=== PATIENT | male | born 1940 | race Caucasian/White ===

== ENCOUNTER → 2016-09-28 | Outpatient (CLI) | payer OTHER, BC ==
[~2016-09-28] VITALS: Ht 177.8 cm; Wt 95.8 kg
[~2016-09-28] MED LIST: ALEVE220 MG PO; ASPIR 8181 MG PO; FLEXERIL PO; IBUPROFEN 800800 M1 PO; IMDUR 60 MG TAB60 M1 PO; MOBIC15 MG PO; NABUMETONE 750750 M1 PO; NEXIUM40 MG PO; SIMVASTATIN40 MG PO; TOPROL XL50 MG PO; XANAX 0.5 MG0.5 MG PO; ZOLOFT50 MG PO
--- NOTE | ~2016-09-28 | HPC ---
[facility] [place] [address] PAIN MANAGEMENT CONSULTATION Name: ISAAC LOPEZ Room #: REG [facility] Johana#: [id number] Admission: 09/28/16 Attend Phys: Thomas Aragon DO Discharge: Date of : 41 Report #: [id number] THIS REPORT FOR: //name// CC: Anibal Aragon The patient is a very pleasant 76-year-old gentleman, I saw back in May, was given a single lumbar epidural injection on his followup appointment on 06/29/2016. He had near "100%" relief of his back pain, and we opted to defer interventional therapy at that time. He returns to the pain clinic today, noting pain has begun to recur in low back, buttocks, and thighs. Rates his pain as 3-4 on a 0-10 visual analog scale, though notes that it is sharp and burning, and it is exacerbated with standing and walking. He has been taking nabumetone 750 mg b.i.d. I am concerned that he does have history of some coronary artery disease. He has dyslipidemia, on Zocor. Hypertension treated with metoprolol and does have endovascular stents in place (he is on no blood thinning agents). PHYSICAL EXAMINATION: Shows a 76-year-old gentleman, BMI is 30.3 kilograms per meter squared. Blood pressure is 97/54, pulse 68, respirations 14. Rises from the chair using armrest. He has a markedly antalgic gait, positive straight leg raise on the right. Right lower extremity flexion and dorsiflexion was 3-4/5. All other muscle groups were 4-5/5. Patellar reflexes absent on the right, 1/4 on the left. DIAGNOSTIC STUDIES: Include MRI of the lumbar spine from 06/04/2016 noting focal right lateral recess stenosis at L2-L3 with the complex synovial cyst at this level, canal narrowed to 8 mm, L3-L4 notes a significant stenosis down to 0.5 cm. Even further compromised at L4-L5 with the canal down to 0.4 cm. ASSESSMENT: Symptomatic lumbar radiculopathy, secondary to fairly significant spinal stenosis in a gentleman with comorbidities including coronary artery disease and hypertension. Hypertension is well controlled. We talked about using nonsteroidal anti-inflammatory medications on a nondaily basis to help mitigate cardiovascular risk of the same. Today, we have elected to proceed with lumbar epidural injection under fluoroscopy at L3-L4. Follow up in 4 weeks to evaluate efficacy. Cancel if doing well. PROCEDURE: Lumbar epidural injection under fluoroscopy. PROCEDURE NOTE: After both written and informed consent to include risk of spinal cord damage, increased pain, weakness and dural puncture, the patient was taken to the fluoroscopy suite, placed in the prone position. After sterile prep and drape, a skin wheal with lidocaine was raised. A 22-gauge epidural Tuohy needle was inserted in the midline at L3-L4 with good loss to resistance. Negative aspiration for cerebrospinal fluid or blood was noted. Then 1 mL [address] [address] PAIN MANAGEMENT CONSULTATION Name: ISAAC LOPEZ Room #: REG MONIKA Vaughn#: [id number] Admission: 09/28/16 Attend Phys: Thomas Aragon DO Discharge: Date of : 41 Report #: [id number] Omnipaque under biplanar fluoroscopy showed good spread within the epidural space. This was followed with 80 mg of triamcinolone plus 1 mL of 1.5% preservative-free Xylocaine, 0.5 mL Xylocaine was then injected to flush the needle; it was removed. The patient was monitored for an appropriate period of time and discharged in good and stable condition. <ELECTRONICALLY SIGNED> By: Thomas Aragon DO 10/03/16 1607 [id number] Thomas Aragon DO /nt
[2016-09-28 08:33] VITALS: BP 97/54
== END | disposition home or self-care (01) ==
LOC: PAIN 07:01
DX: M48.06 Spinal stenosis, lumbar region (principal); I25.10 Atherosclerotic heart disease of native coronary artery without angina pectoris; I10 Essential (primary) hypertension; E78.5 Hyperlipidemia, unspecified

== ENCOUNTER → 2016-10-12 | Outpatient (CLI) | payer OTHER, BC ==
[~2016-10-12] VITALS: Ht 177.8 cm; Wt 92.1 kg
--- NOTE | ~2016-10-12 | HPC ---
[facility] [place] [address] PAIN MANAGEMENT CONSULTATION Name: ISAAC LOPEZ Room #: REG [facility] Johana#: [id number] Admission: 10/12/16 Attend Phys: Thomas Aragon DO Discharge: Date of : 41 Report #: [id number] THIS REPORT FOR: //name// CC: Anibal Aragon The patient is a 76-year-old gentleman, previously seen in the pain clinic back in September for his symptomatic lumbar radiculopathy. The patient had 50% relief of his low back pain. Relafen is helping some, though he has some mild GERD, well treated with Nexium. He does take Tylenol for pain. He notes his primary pain is in the right low back, little more in the SI area today. He rates his pain 3-4 on a 0-10 visual analog scale, describes a sharp, burning sensation, primarily back, upper buttock, right greater than left. Notes that the epidural injection gave 50% relief. It returned a little bit, but still much better than prior. He denies specific bowel or bladder continence changes or lower extremity weakness. PHYSICAL EXAMINATION: Shows a 76-year-old gentleman, BMI is 29.1 kilograms per meter squared. Vital signs are stable as noted on the EMR. Rises from the chair using armrest. Gait is tandem. There is tenderness over the SI joint in right, dramatically greater than left. Positive Jamia's test on the right, Jamia's test is negative on the left. Lower extremity strength is symmetric. Straight leg raise is negative. ASSESSMENT: 1. Symptomatic lumbar radiculopathy. Symptoms are relatively quiescent at present. 2. Right sacroiliac joint dysfunction by clinical exam today. RECOMMENDATIONS: 1. Continue nabumetone with Nexium for gastritis, Tylenol for pain. We talked about core strengthening for axial back and SI pain. 2. Right SI joint injection under fluoroscopy for right SI mediated pain/lumbosacral spondylosis. Follow up simply as needed. PROCEDURE NOTE: Right SI joint injection under fluoroscopy. DESCRIPTION OF PROCEDURE: After written and informed consent was obtained, the patient was taken to the fluoroscopy suite, placed in the prone position. After sterile prep and drape, skin wheal with Xylocaine was raised. A 22-gauge stylet needle was placed in the inferior aspect of the right SI joint. Negative aspiration was accomplished. 1 mL of Omnipaque was injected which showed spread within the joint. This was followed with 40 mg of triamcinolone plus 1 mL of 0.5% preservative-free bupivacaine. [place] were removed[place] [address] PAIN MANAGEMENT CONSULTATION Name: ISAAC LOPEZ Room #: REG [facility] Johana#: [id number] Admission: 10/12/16 Attend Phys: Thomas Aragon DO Discharge: Date of : 41 Report #: [id number] cleansed. Band-Aids were applied. The patient monitored for an appropriate period of time, discharged in good and stable condition. <ELECTRONICALLY SIGNED> By: Thomas Aragon DO 10/17/16 0729 [id number] [id number] Thomas Aragon DO /nt
[2016-10-12 14:49] VITALS: BP 127/76
== END | disposition home or self-care (01) ==
LOC: PAIN 07:40
DX: M53.3 Sacrococcygeal disorders, not elsewhere classified (principal)

== ENCOUNTER → 2017-06-24 | Outpatient (CLI) | payer OTHER, BC ==
[~2017-06-24] VITALS: Ht 177.8 cm; Wt 93.9 kg
[~2017-06-24] MED LIST changes: +ALIGN4 MG PO; +NITROGLYCERIN0.4 MG SUBLING; +TYLENOL ARTHRI650 MG PO; +VITAMIN D3400 UNIT PO
--- NOTE | ~2017-06-24 | HPC ---
[facility] [place] [address] PAIN MANAGEMENT CONSULTATION Name: ISAAC LOPEZ [facility] [id number] Admission: 06/24/17 Attend Phys: Thomas Aragon DO Discharge: Date of : 41 Report #: [id number] THIS REPORT FOR: //name// CC: Anibal Aragon DATE OF SERVICE: 06/24/2017 DATE OF SERVICE: 06/24/2017 HISTORY OF PRESENT ILLNESS: The patient is a pleasant 76-year-old gentleman last seen in the pain clinic back in 09/2016. He is being treated for right SI joint dysfunction and some symptomatic lumbar radiculopathy. I have given him a right SI joint injection at last visit. He has had 2 epidural injections, one on 06/14/2016 and again on 09/28/2016. Somewhat lost to follow up. Returns to pain clinic today, he notes right SI pain remains actually fairly well controlled with current medication. He ran out of nabumetone last week, did have significant exacerbation of his axial back pain as well as pain in his shoulders, elbows and hands. Today, he notes pain is 3/5 in his back, 4-5 on VAS score in his upper extremities. 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 BMI is 29.7 kilograms per meter squared. Obvious arthritic nodules in his hands. Slight decreased range of motion, elbow and wrists. Vital signs are stable. Rises from chair using armrest. Flank pain in the L4-L5, L5-S1 area. SI pain is really fairly unremarkable at this time. Flexion is modestly limited, rotation exacerbates pain. Lower extremity strength is preserved. The patient has coronary artery history, status post endovascular stents. Again, we had discussed at length weaning off of nabumetone. Concern that, as patient notes, when he stops the nabumetone, not only does the back pain get bad, his hands significantly got worse as well. Today, after a long discussion with the patient, I did renew a prescription for nabumetone 750 mg 1 a day (I decreased him from b.i.d. in consideration of his coronary artery disease at prior visit), he uses the nabumetone one tablet in the morning and 2 Tylenol tablets in the evening. He has an appointment to see his mail sorter later this week. I asked him to hold on to that prescription and ask his mail sorter if he was okay with the patient continuing nonsteroidal anti-inflammatory agents. If he feels that the cardiac risk outweigh the benefits, I will be happy to see him back. We will likely consider lumbar facet joint injection under fluoroscopy, use of topical Voltaren gel for his hands and perhaps some mild analgesics (tramadol question [place]). [address] [address] PAIN MANAGEMENT CONSULTATION Name: ISAAC LOPEZ Cordelia Room #: REG [facility] Johana#: [id number] Admission: 06/24/17 Attend Phys: Thomas Aragon DO Discharge: Date of : 41 Report #: [id number] Discharged in good and stable condition after prolonged visit, spent reviewing multiple comorbidities and concerns. The patient was seen from 9:54 to 10:20. Greater than 50% of this 25+ minute visit was spent counseling the patient. Discharged in good and stable condition. <ELECTRONICALLY SIGNED> By: Thomas Aragon DO 06/26/17 0752 [id number] Thomas Aragon DO /nt
[2017-06-24 09:40] VITALS: BP 116/58
== END | disposition home or self-care (01) ==
LOC: PAIN 07:22
DX: M53.3 Sacrococcygeal disorders, not elsewhere classified (principal); M54.16 Radiculopathy, lumbar region; I25.10 Atherosclerotic heart disease of native coronary artery without angina pectoris

== ENCOUNTER → 2017-12-27 | Outpatient (CLI) | payer OTHER, BC ==
[~2017-12-27] VITALS: Ht 177.8 cm; Wt 96.3 kg
--- NOTE | ~2017-12-27 | HPC ---
[facility] [place] [address] PAIN MANAGEMENT CONSULTATION Name: ISAAC LOPEZ Room #: REG [facility] Johana#: [id number] Admission: 12/27/17 Attend Phys: Thomas Aragon DO Discharge: Date of : 41 Report #: [id number] THIS REPORT FOR: //name// CC: Anibal Aragon The patient is a very pleasant 77-year-old gentleman, treated for symptomatic lumbar radiculopathy, right SI joint dysfunction. He has had 2 epidural injections in May 2016 and again in September 2016. He was last seen in pain clinic 06/24/2017. 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 He has obvious arthritic nodules in his hands, slight decreased range of motion in elbows and wrists, ongoing axial back pain with preserved lower extremity strength. Comorbidity includes history of coronary artery disease, status post endovascular stents. Last visit, we had talked about concerns for use of NSAID and coronary artery risk. He had weaned off of nabumetone, but had significant impact in his functional status. Pain in his hands, elbows, shoulders, back and hips became quite problematic. After a long discussion and weighing risks and benefits of NSAID use and coronary artery disease versus functional status and pain in this gentleman who eschews opiate analgesics, we have elected to use nabumetone 750 once a day with an occasional twice a day. We talked about trying to have occasional days in the week without any NSAID use. PHYSICAL EXAMINATION: Shows a pleasant 77-year-old gentleman, BMI is 30.5 kg/m2. Vital signs are stable. Subjectively pain score is 2 on a VAS. Functional assessment tool is 34/70. He does not use tobacco products. Again, low back pain, left greater than right knees, wrists and shoulders with subjective arthritic pain. He recently hyperextend his left knee, though there is no ballotable edema here. ASSESSMENT: Chronic axial back pain, multiple osteoarthritic joints, requiring complex medication management. RECOMMENDATION: After discussion, we have elected to continue nabumetone 750 one to two a day with occasional "drug holiday." I did take the liberty of writing for 60 tablets with 5 refills. The patient has a followup appointment with his signs sales representative in a few months. I told him to mention his nabumetone use. We will see him simply on as needed basis. Discharged in good and stable condition. <ELECTRONICALLY SIGNED> By: Thomas Aragon DO 12/30/17 0809 [id number] Thomas Aragon DO /nt
[2017-12-27 10:30] VITALS: BP 109/67
== END ==
LOC: PAIN 06:52
DX: G89.29 Other chronic pain (principal); M54.9 Dorsalgia, unspecified; M19.90 Unspecified osteoarthritis, unspecified site; Z79.899 Other long term (current) drug therapy

== ENCOUNTER → 2018-02-28 | Outpatient (CLI) | payer OTHER, BC ==
[~2018-02-28] VITALS: Ht 177.8 cm; Wt 95.3 kg
[~2018-02-28] MED LIST changes: +ERGOCALCIF50000 UNIT PO
--- NOTE | ~2018-02-28 | HPC ---
[facility] [place] [address] PAIN MANAGEMENT CONSULTATION Name: ISAAC LOPEZ Room #: REG [facility] Johana#: [id number] Admission: 02/28/18 Attend Phys: Thomas Aragon DO Discharge: Date of : 41 Report #: [id number] THIS REPORT FOR: //name// CC: Anibal Aragon HISTORY OF PRESENT ILLNESS: The patient is an extremely pleasant 77-year-old gentleman, prior seen in the pain clinic on 12/27/2017. He has significant lumbar radiculopathy secondary to spinal stenosis, component of neurogenic claudication. He has osteoarthritis affecting his hands. History of coronary artery disease, precluding regular use of an anti-inflammatory. He has had epidural injections on 05/2016 and again in 09/2016. Also had a single SI injection as well. Somewhat lost to followup, had returned in December. He was planning a trip to [place]". This did involve prolonged air travel, bus travel and walking. He enjoyed the trip but did note increased pain. At last clinic visit, I kept the patient on p.r.n. nabumetone 750. Returns to pain clinic today noting pain has recurred, low back left greater than right, radiating down to the leg. Pain is exacerbated with standing for any period of time. Physical exam shows diminished strength bilaterally with modestly positive straight leg raise, left greater than right. Diffuse tenderness across the low back. No SI-mediated pain at this time. I reviewed his MRI somewhat dated from 06/04/2016, has significant spinal stenosis throughout, moderately severe stenosis at L3-L4 and L4-L5, down to 0.5 at L3-L4, down to 0.4 at L4-L5. Little larger space at L5-S1, but still narrowed with broadbased annular disk flattening the anterior thecal sac, canal was 0.6 cm at this level. Has a component of spondylosis as well. ASSESSMENT: 1. Symptomatic lumbar radiculopathy secondary to spinal stenosis. 2. History of right sacroiliac-mediated pain. 3. Some lumbar spondylosis. 4. Osteoarthritis affecting his hands 5. Coronary artery disease, precluding regular use of nonsteroidal anti-inflammatory, though he does use it on a p.r.n. basis. RECOMMENDATIONS: Discussion with the patient today about therapeutic options. We have elected to proceed with epidural injection at L5-S1 today, I did talk briefly about a spinal cord stimulator as possible therapeutic option to help with neurogenic claudication if surgery is not an option. We would want at least talk to a neurosurgeon; however, with his fairly extensive stenosis throughout the lumbar spine, I am afraid that surgical intervention would be fairly extensive in this 77-year-old gentleman with comorbidities including coronary artery disease. [address] [address] PAIN MANAGEMENT CONSULTATION Name: ISAAC LOPEZ Room #: REG [facility] Vaughn#: [id number] Admission: 02/28/18 Attend Phys: Thomas Aragon DO Discharge: Date of : 41 Report #: [id number] The patient was given epidural injection today, discharged in stable condition. Follow up in 2 weeks for reevaluation. Consideration for repeat epidural injection versus SI joint injection depending on clinical exam at that time. If he is doing well, we will have him cancel and simply follow up with one of my [facility] partners. Again, we did briefly talk about a spinal cord stimulator as possible therapeutic option if symptoms do not get good resolution with percutaneous interventional therapy (epidural injections) and if he is deemed not to be a surgical candidate. ASSESSMENT: Symptomatic lumbar radiculopathy secondary to spinal stenosis. PROCEDURE: Lumbar epidural injection under fluoroscopy. PROCEDURE NOTE: After both written and informed consent to include risk of spinal cord damage, increased pain, weakness and dural puncture, the patient was taken to the fluoroscopy suite, placed in the prone position. After sterile prep and drape, a skin wheal with lidocaine was raised. A 22-gauge epidural Tuohy needle was inserted in the midline at L5-S1 with good loss to resistance. Negative aspiration for cerebrospinal fluid or blood was noted. Then 1 mL of Omnipaque under biplanar fluoroscopy showed good spread within the epidural space. This was followed with 80 mg of triamcinolone plus 1 mL of 1.5% preservative-free Xylocaine, 0.5 mL Xylocaine was then injected to flush the needle; it was removed. The patient was monitored for an appropriate period of time and discharged in good and stable condition. <ELECTRONICALLY SIGNED> By: Thomas Aragon DO 03/03/18 0709 [id number] Thomas Aragon DO /nt
[2018-02-28 08:10] VITALS: BP 131/80
== END | disposition home or self-care (01) ==
LOC: PAIN 06:55
DX: M48.061 Spinal stenosis, lumbar region without neurogenic claudication (principal); G89.29 Other chronic pain; M47.26 Other spondylosis with radiculopathy, lumbar region; M19.042 Primary osteoarthritis, left hand; M19.041 Primary osteoarthritis, right hand; I25.10 Atherosclerotic heart disease of native coronary artery without angina pectoris; Z79.899 Other long term (current) drug therapy; Z79.82 Long term (current) use of aspirin; Z98.890 Other specified postprocedural states

== ENCOUNTER → 2018-09-24 | Outpatient (CLI) | payer OTHER, BC ==
[~2018-09-24] VITALS: Ht 177.8 cm; Wt 96.5 kg
--- NOTE | ~2018-09-24 | HPC ---
[facility] [place] [address] PAIN MANAGEMENT CONSULTATION Name: ISAAC LOPEZ Room #: REG [facility]#: [id number] Admission: 09/24/18 Attend Phys: Jimbo Aragon DO Discharge: Date of : 41 Report #: [id number] THIS REPORT FOR: //name// CC: Anibal Aragon DATE OF SERVICE: 09/24/2018 CHIEF COMPLAINT: Low back pain, left lower extremity pain and paresthesias. HISTORY OF PRESENT ILLNESS: As you know, the patient is a 77-year-old female who returns today in followup visit requesting to undergo a lumbar epidural injection under fluoroscopic guidance. As you are aware, the patient suffers from progressively worsening spinal stenosis of lumbar spine, which is multifactorial in its presentation. She has a displaced lumbar intervertebral disk, facet arthropathy of the lumbar region combining to cause spinal stenotic changes. She returns today in followup visit reporting pain of around 2-3/10. Most recent epidural injection she underwent gave 80% improvement in overall pain lasting for 4 months. She returns requesting next in the series of epidural injections. She has not had any new injury or trauma. ALLERGIES: No known drug allergies. CURRENT MEDICATIONS: See chart. SOCIAL HISTORY: The patient denies tobacco, alcohol, IV or illicit drug use. She is unaccompanied today. IMAGING: No new imaging available. PQRS: The patient has known arthritic changes of the low back, bilateral hips and bilateral knees. No rheumatoid arthritis. She is not a fall risk, has not had a fall in the last 3 months. She is not on blood thinners. She is treated for hypertension. She is not on chronic opioids. She has a low risk of opioid abuse. Pain impact score 34/70, moderate interference of daily activities secondary to pain. PHYSICAL EXAMINATION: VITAL SIGNS: Blood pressure 106/56, pulse 64, respiratory rate 16 and unlabored. The patient is 97% on room air. Height 5 feet 10 inches tall, weight 212.8 pounds, BMI calculated 30.5. GENERAL: Well-developed, well-nourished, well-hydrated 78-year-old female appearing stated age, placing current pain score 2-3/10. HEENT: Normocephalic, atraumatic. Pupils equal, round, reactive to light. Extraocular muscles are intact. [address] [address] PAIN MANAGEMENT CONSULTATION Name: ISAAC LOPEZ [facility] [id number] Admission: 09/24/18 Attend Phys: Jimbo Aragon DO Discharge: Date of : 41 Report #: [id number] EXTREMITIES: Show no clubbing, no cyanosis, no edema. MUSCULOSKELETAL: Lower extremity strength appears symmetrical 5/5, noted deconditioning bilaterally in the lower extremities. Ankle clonus negative. Babinski is negative. Seated straight leg raising is negative. Supine straight leg raising is positive. Jamia's test negative. ASSESSMENT: 1. Lumbar radiculopathy. 2. Spinal stenosis of lumbar spine, progressively worsening. 3. Displacement of lumbar intervertebral disk with radiculopathy. 4. Lumbosacral spondylosis with radiculopathy. 5. Facet arthropathy of the lumbar spine. 6. Chronic intractable pain. PLAN: 1. The patient returns today in followup visit to undergo epidural injection under fluoroscopic guidance. The patient reports 80% improvement in overall pain lasting for nearly 4 months with previous epidural injection. She has been advised risks and benefits of procedure, states understood and wished to proceed. 2. No medication changes made at today's visit. The patient to continue current medical therapy as previously prescribed. 3. We will see the patient back in followup visit on an as needed basis for the possible next in the series of lumbar epidural injections. PROCEDURE NOTE DESCRIPTION OF PROCEDURE: L5-S1 left paramedian epidural steroid injection under fluoroscopic guidance. After obtaining written consent, the patient was taken back to fluoroscopy suite, placed in prone position with pillow under abdomen to decrease lumbar lordosis. Skin overlying lumbosacral area then prepped and draped in aseptic fashion. L5-S1 vertebral interspace identified by AP fluoroscopy. Skin and subcutaneous tissue overlying target site of injection anesthetized with 3 mL of 1% lidocaine. A 20-gauge 3-1/2 inch Tuohy needle advanced under fluoroscopic guidance towards the epidural space using left paramedian approach. Epidural space identified using loss of resistance to air technique. After negative aspiration for heme or cerebrospinal fluid, 1 mL of Omnipaque injected. Lumbar epidurogram confirmed using both AP and lateral fluoroscopy. After negative aspiration for heme or cerebrospinal fluid, 5 mL of a solution containing 2 mL 40 mg per mL, 80 mg total triamcinolone, 3 mL lidocaine 1% injected slowly. Needle retracted care home, flushed with 1 mL of 1% lidocaine and then removed. Sterile bandage placed over injection site. No new motor deficits present in lower extremity [facility] [address] [place] [address] PAIN MANAGEMENT CONSULTATION Name: ISAAC LOPEZ Room #: [facility] [id number] Admission: 09/24/18 Attend Phys: Jimbo Aragon DO Discharge: Date of : 41 Report #: [id number] following procedure. The patient tolerated procedure well, carefully escorted to the recovery room in stable condition. No apparent complications. After meeting discharge criteria, the patient discharged home. By: [id number] Jimbo Aragon DO /nt
[2018-09-24 08:58] VITALS: BP 106/56
--- NOTE | 2018-09-24 09:12 | NUR ---
Pain Clinic Assessment: 1. History of Osteoarthritis: SPINE History of Rheumatoid Arthritis: Not Applicable 2. Height: 5 ft. 10 in. 177.8 cm. Weight: 212.8 lb. oz. 96.526 kg. Patient's BMI: 30.5 3. Vital Signs: BP: 106/56 Pulse: 64 Resp: 16 Temp: 02 Sat: 97 ECG Mon: 4. Pain Intensity: 2-3 5. Fall Risk: Dizziness: N Needs help standing or walking: N Fallen in the last 3 months: N Fall risk comments: 6. Patient on Blood Thinner: None 7. History of Hypertension: Y 8. Opioid Therapy greater than 6 weeks: N Opiate Contract Signed: 9. Risk Assessment Tool Provided: LOW-1 10. Functional Assessment Tool: 11. Recreational Drug Use: Never Drug Type: Tobacco Use: Never Smoker Tobacco Type: Amount or Packs/day: How Many Years: Alcohol Use: No Frequency: Quant:
== END | disposition home or self-care (01) ==
LOC: PAIN 08:18
DX: M54.16 Radiculopathy, lumbar region (principal); G89.29 Other chronic pain; Z79.82 Long term (current) use of aspirin; Z79.899 Other long term (current) drug therapy

== ENCOUNTER → 2018-12-24 | Outpatient (CLI) | payer OTHER, BC ==
[~2018-12-24] VITALS: Ht 177.8 cm; Wt 94.3 kg
--- NOTE | ~2018-12-24 | HPC ---
[facility] [place] [address] PAIN MANAGEMENT CONSULTATION Name: ISAAC LOPEZ Room #: REG [facility].#: [id number] Admission: 12/24/18 ������������������ Attend Phys: Jimbo Aragon DO Discharge: ������������������ Date of : 42 Report #: [id number] THIS REPORT FOR: //name// CC: Anibal Aragon DATE OF SERVICE: 12/24/2018 CHIEF COMPLAINT: Low back pain, left lower extremity pain and paresthesias. HISTORY OF PRESENT ILLNESS: As you know, the patient is a pleasant 78-year-old male who returns today in followup visit to undergo next in the series of lumbar epidural injections under fluoroscopic guidance. The patient underwent an epidural injection on 09/24/2018, which reportedly provided 50-60% improvement in overall pain. He returns today with pain level of 6/10. Reports pain as numbness, tingling, aching in sensation, exacerbated with standing, walking, improves with medications and previous epidural injection. He returns today to undergo epidural injection in hopes of improving residual symptoms. The patient denies new injury or trauma that may have led to symptom recurrence. He indicates symptoms slowly and progressively returned over the past couple of weeks leading to the pain level of 6/10 today. ALLERGIES: No known drug allergies. CURRENT MEDICATIONS: Nabumetone, nitroglycerin, cholecalciferol, acetaminophen, aspirin, simvastatin, metoprolol, omeprazole, alprazolam, sertraline. SOCIAL HISTORY: The patient denies tobacco, alcohol, IV or illicit drug use. He is unaccompanied today. IMAGING: No new imaging available. PQRS: The patient has known arthritic change of the lumbar spine, bilateral hips, bilateral knees. No rheumatoid arthritis. He is not a fall risk, has not had a fall in last 3 months. He is not on blood thinners. He is treated for hypertension. He is not on long-term opioid medications. He has a low risk of opioid addiction. Pain impact score 34/70 indicating moderate interference of daily activities secondary to pain. PHYSICAL EXAMINATION: VITAL SIGNS: Blood pressure 118/63, pulse 71, respiratory rate 16 and unlabored. The patient is 98% on room air. Height 5 feet 10 inches tall, weight 208 pounds, BMI calculated 29.8. GENERAL: Well-developed, well-nourished, well-hydrated 78-year-old male appearing stated age, placing current pain score 6/10. [place] [address] PAIN MANAGEMENT CONSULTATION Name: ISAAC LOPEZ Room #: REG [facility]#: [id number] Admission: 12/24/18 ������������������ Attend Phys: Jimbo Aragon DO Discharge: ������������������ Date of : 42 Report #: [id number] HEENT: Normocephalic, atraumatic. Pupils equal, round, reactive to light. EXTREMITIES: Show no clubbing, no cyanosis, and no edema. MUSCULOSKELETAL: Lower extremity strength appears equal and symmetrical again today 5/5, muscle bulk and tone equal and symmetrical, though there is noted deconditioning again in the lower extremities. Ankle clonus is negative. Seated straight leg raising is negative. Supine straight leg raising is positive on the left. Jamia's test negative. Modified Gaenslen's positive for axial low back pain. ASSESSMENT: 1. Symptomatic lumbar radiculopathy. 2. Spinal stenosis of lumbar spine. 3. Displacement of lumbar intervertebral disk with radiculopathy. 4. Lumbosacral spondylosis with radiculopathy. 5. Lumbar degeneration. 6. Facet arthropathy of the lumbar spine. 7. Chronic intractable pain. PLAN: 1. The patient returns today in followup visit having noted 50-60% improvement in overall pain with previous epidural injection. He returns today in followup visit to undergo next in the series of epidural injections in hopes of improving pain and building on the success of previous intervention. I have advised the patient the risks and benefits of the procedure, he states he understood and wished to proceed. 2. I have provided the patient with refill of his nabumetone 750 mg dose 1 tab p.o. b.i.d. I have given the patient #60 tablets, 2 refills, 3 months' worth of medication. 3. We will see the patient back in followup visit on an as needed basis for the third in the series of epidural injections. Otherwise, we will see him back in 3 months for refills of his nabumetone therapy. PROCEDURE NOTE: DESCRIPTION OF PROCEDURE: L5-S1 left paramedian epidural steroid injection under fluoroscopic guidance. After obtaining written consent, the patient was taken back to fluoroscopy suite, placed in prone position with pillow under abdomen to decrease lumbar lordosis. Skin overlying lumbosacral area then prepped and draped in aseptic fashion. The L5-S1 vertebral interspace identified by AP fluoroscopy. Skin and subcutaneous tissue overlying target site of injection anesthetized with 3 mL of 1% lidocaine. A 20-gauge 3-1/2 inch Tuohy needle advanced under fluoroscopic guidance towards the epidural space using left paramedian approach. Epidural space identified [address] [address] PAIN MANAGEMENT CONSULTATION Name: ISAAC LOPEZ Room #: REG [facility]#: [id number] Admission: 12/24/18 ������������������ Attend Phys: Jimbo Aragon DO Discharge: ������������������ Date of : 42 Report #: [id number] using loss of resistance to air technique. After negative aspiration for heme or cerebrospinal fluid, 1 mL of Omnipaque injected. Lumbar epidurogram confirmed using both AP and lateral fluoroscopy. After negative aspiration for heme or cerebrospinal fluid, 5 mL of a solution containing 2 mL 40 mg per mL, 80 mg total triamcinolone and 3 mL of lidocaine 1% injected slowly. Needle retracted approximately half way, flushed with 1 mL of 1% lidocaine and removed. Sterile bandage placed over injection site. No new motor deficits present in the lower extremities following procedure. The patient tolerated procedure well, carefully escorted to recovery room in stable condition. No apparent complications. After meeting discharge criteria, the patient discharged home. ��������������������������������������������� ���������������������������������������� By: ��������������������������������������������� 0830 [id number] Jimbo Aragon DO /nt
[2018-12-24 10:58] VITALS: BP 118/63
--- NOTE | 2018-12-24 11:07 | NUR ---
Pain Clinic Assessment: 1. History of Osteoarthritis: SPINE History of Rheumatoid Arthritis: Not Applicable 2. Height: 5 ft. 10 in. 177.8 cm. Weight: 208.0 lb. oz. 94.348 kg. Patient's BMI: 29.8 3. Vital Signs: BP: 118/63 Pulse: 71 Resp: 16 Temp: 02 Sat: 98 ECG Mon: 4. Pain Intensity: 6 5. Fall Risk: Dizziness: N Needs help standing or walking: N Fallen in the last 3 months: N Fall risk comments: 6. Patient on Blood Thinner: None 7. History of Hypertension: Y 8. Opioid Therapy greater than 6 weeks: N Opiate Contract Signed: 9. Risk Assessment Tool Provided: LOW-1 10. Functional Assessment Tool: / 11. Recreational Drug Use: Never Drug Type: Tobacco Use: Never Smoker Tobacco Type: Amount or Packs/day: How Many Years: Alcohol Use: No Frequency: Quant:
== END | disposition home or self-care (01) ==
LOC: PAIN 06:52
DX: M51.16 Intervertebral disc disorders with radiculopathy, lumbar region (principal); M48.061 Spinal stenosis, lumbar region without neurogenic claudication; M47.27 Other spondylosis with radiculopathy, lumbosacral region; M12.88 Other specific arthropathies, not elsewhere classified, other specified site; G89.29 Other chronic pain; I10 Essential (primary) hypertension; G47.30 Sleep apnea, unspecified; Z79.82 Long term (current) use of aspirin; Z79.899 Other long term (current) drug therapy

== ENCOUNTER → 2019-06-24 | Outpatient (CLI) | payer OTHER, BC ==
[~2019-06-24] VITALS: Ht 177.8 cm; Wt 94.8 kg
[2019-06-24 10:27] VITALS: BP 141/77
--- NOTE | 2019-06-24 10:33 | NUR ---
Pain Clinic Assessment: 1. History of Osteoarthritis: SPINE History of Rheumatoid Arthritis: Not Applicable 2. Height: 5 ft. 10 in. 177.8 cm. Weight: 209.0 lb. oz. 94.802 kg. Patient's BMI: 30.0 3. Vital Signs: BP: 141/77 Pulse: 63 Resp: 16 Temp: 02 Sat: 96 ECG Mon: 4. Pain Intensity: 6-SITTING, 8-WALKING 5. Fall Risk: Dizziness: N Needs help standing or walking: N Fallen in the last 3 months: N Fall risk comments: 6. Patient on Blood Thinner: None 7. History of Hypertension: Y 8. Opioid Therapy greater than 6 weeks: N Opiate Contract Signed: 9. Risk Assessment Tool Provided: LOW-1 10. Functional Assessment Tool: 34/ 11. Recreational Drug Use: Never Drug Type: Tobacco Use: Never Smoker Tobacco Type: Amount or Packs/day: How Many Years: Alcohol Use: No Frequency: Quant:
--- NOTE | 2019-07-07 08:01 | HPC ---
[address] [address] PAIN MANAGEMENT CONSULTATION Name: ISAAC LOPEZ [facility] [id number] Admission: 06/24/19 Attend Phys: Jimbo Aragon DO Discharge: Date of : 42 Report #: [id number] THIS REPORT FOR: //name// CC: Anibal Oscar MD DATE OF SERVICE: 06/24/2019 REFERRING PHYSICIAN: Binh Oscar MD CHIEF COMPLAINT: Low back pain, bilateral lower extremity pain with paresthesias. HISTORY OF PRESENT ILLNESS: As you know, the patient is a very pleasant 78-year-old male who suffers from lumbar radiculopathy secondary to spinal canal stenosis. He was recently seen by his neurosurgeon, Dr. Binh Oscar, who referred the patient back to our clinic to trial an epidural injection under fluoroscopic guidance. They are requesting the patient trial more conservative treatment option before moving forward with surgical options, if necessary. He has been referred back to our clinic to undergo this procedure today. He states pain today at a level of 6/10 in seated position, 8/10 with ambulating. He experiences no weakness in the lower extremities based on his recent evaluations. He suffered no injury or trauma that led to symptom development. PAST MEDICAL HISTORY: 1. Salivary gland cancer. 2. Coronary artery disease, status post 5 percutaneous stenting. 3. Dyslipidemia. 4. Anxiety disorder. 5. Gastroesophageal reflux disease. PAST SURGICAL HISTORY: 1. Cardiac stenting x5. 2. Excision of salivary gland cancer. SOCIAL HISTORY: The patient denies tobacco use. Denies IV or illicit drug use. He partakes no alcohol at this time. He is a choi by trade. He is unaccompanied today. IMAGING: No new imaging available. ALLERGIES: No known drug allergies. CURRENT MEDICATIONS: Metoprolol 50 mg once a day, simvastatin 40 mg once a day, aspirin 81 mg per day, nabumetone 750 mg b.i.d. Align 1 capsule per day, vitamin [address] [address] PAIN MANAGEMENT CONSULTATION Name: ISAAC LOPEZ Room #: REG [facility].#: [id number] Admission: 06/24/19 Attend Phys: Jimbo Aragon DO Discharge: Date of : 42 Report #: [id number] D 50,000 units per week, omeprazole 40 mg per day, sertraline 100 mg per day and alprazolam 0.5 mg b.i.d. p.r.n. PQRS: The patient has known arthritic changes of the bilateral low back, bilateral hips and knees. No rheumatoid arthritis. The patient is placing current pain score 6-8/10 depending on activity. He is not a fall risk, has not had a fall in last 3 months. He is not on blood thinners, but is treated for hypertension. He is not on chronic opioids and reportedly has a low opioid addiction potential. Pain impact score 34/70, moderate interference of daily activities secondary to pain. PHYSICAL EXAMINATION: VITAL SIGNS: Blood pressure 141/77, pulse 63, respiratory rate 16 and unlabored. The patient is 96% on room air. Height 5 feet 10 inches tall, weight 209 pounds, BMI calculated 30.0. GENERAL: Well-developed, well-nourished, well-hydrated 78-year-old male, appearing stated age. Pain is rated anywhere from 6-8/10. HEENT: Normocephalic, atraumatic. Pupils equal, round, reactive to light. Extraocular muscles are intact. Sclerae nonicteric, without injection. EXTREMITIES: Show no clubbing, no cyanosis, and no edema. MUSCULOSKELETAL: The patient's lower extremity strength equal and symmetrical 5/5, intact to light touch from L5 through S1 dermatomes. Seated straight leg raising negative. Supine straight leg raising negative. DU'S test is negative. ASSESSMENT: 1. Symptomatic lumbar radiculopathy. 2. Spinal stenosis of lumbar spine. 3. Displacement of lumbar intervertebral disk with radiculopathy. 4. Lumbosacral spondylosis with radiculopathy. 5. Lumbar degeneration. 6. Facet arthropathy pain. 7. Chronic intractable pain. PLAN: 1. The patient was referred to our clinic today by his neurosurgeon, Dr. Binh Oscar, to undergo a lumbar epidural injection under fluoroscopic guidance to hopefully improve overall pain. The patient and I discussed at length the risks and the benefits of this procedure. These risks include but are not necessarily limited to bleeding, bruising, infection, worsening pain, no relief of pain, also risk of temporary or permanent muscle weakness, temporary or permanent nerve damage, possible paralysis, post-dural puncture headache and . The patient states he understood and wished to proceed. 2. No medication changes made at today's visit. I did refill the patient's nabumetone 500 mg dose 1 tablet p.o. b.i.d. I gave the patient #60 tablets with [address] [address] PAIN MANAGEMENT CONSULTATION Name: ISAAC LOPEZ Room #: REG [facility]#: [id number] Admission: 06/24/19 Attend Phys: Jimbo Aragon DO Discharge: Date of : 42 Report #: [id number] 3. We will see the patient back in followup visit for possible next in the series of lumbar epidural injections to address lumbar radicular symptoms. PROCEDURE NOTE DESCRIPTION OF PROCEDURE: L4-L5 lumbar epidural steroid injection under fluoroscopic guidance. This is the first procedure of the third series that the patient is undergoing. After obtaining written consent, the patient was taken back to the fluoroscopy suite, placed in a prone position with pillow under the abdomen to decrease lumbar lordosis. The skin overlying the lumbosacral area was then prepped and draped in aseptic fashion. The L4-L5 vertebral interspace was then identified by AP fluoroscopy. The skin and subcutaneous tissue overlying the target site of injection was anesthetized with 3 mL 1% lidocaine. A 20-gauge 3-1/2-inch Tuohy needle was then advanced under fluoroscopic guidance towards the epidural space using a parasagittal approach. The epidural space was identified using loss of resistance to air technique. After negative aspiration for heme or cerebrospinal fluid, a total of 1 mL of Omnipaque was injected. A lumbar epidurogram was confirmed using both AP and lateral fluoroscopy. After negative aspiration for heme or cerebrospinal fluid, 5 mL of a solution containing 2 mL 40 mg per mL, 80 mg total triamcinolone along with 3 mL lidocaine 1% was injected in increments. Contrast spread was noted posterior epidural space. The needle was then retracted approximately half way and needle tract flushed with 1 mL of 1% lidocaine. Needle was then removed. There were no apparent sensory or motor deficits in the lower extremity following the procedure. A sterile bandage was placed over the injection site. The heart rate, pulse, oximetry and blood pressure were continuously monitored after the procedure. There were no apparent complications. The patient tolerated the procedure well and was carefully escorted to the recovery room in stable condition. There were no apparent complications. After meeting discharge criteria, the patient was then discharged home. <ELECTRONICALLY SIGNED> By: Jimbo Aragon DO 07/07/19 [id number] Jimbo Aragon DO /nt
== END | disposition home or self-care (01) ==
LOC: PAIN 07:06
DX: M51.16 Intervertebral disc disorders with radiculopathy, lumbar region (principal); M48.061 Spinal stenosis, lumbar region without neurogenic claudication; M47.27 Other spondylosis with radiculopathy, lumbosacral region; M12.88 Other specific arthropathies, not elsewhere classified, other specified site; G89.29 Other chronic pain; I10 Essential (primary) hypertension; E78.5 Hyperlipidemia, unspecified; F41.9 Anxiety disorder, unspecified; K21.9 Gastro-esophageal reflux disease without esophagitis; Z79.899 Other long term (current) drug therapy; Z79.82 Long term (current) use of aspirin